=== PATIENT | male | born 1995 | race Caucasian/White ===

== ENCOUNTER 2020-07-22 16:52 | Emergency (ER) | payer OTHER ==
--- NOTE | 2020-07-22 17:40 | ED Physician Documentation ---
History of Present Illness - Stated complaint Stated Complaint: RT SHOULDER PX - Chief complaint Chief Complaint: Ext Problem - History obtained from History obtained from: Patient - History of Present Illness Timing: Today Pain level max: 8 Pain level now: 8 - Additonal information Additional information: Patient is a 24-year-old male with right shoulder pain. He states is been ongoing for at least the last year. He states he has been doing physical therapy for the past year and working with [facility]. He states that he is tired of his shoulder hurting and came in here to "get it fixed" today. He states he has not had an MRI or seen orthopedics. Worse with movement, better with rest. Worse with movement and better with rest. Review of Systems Constitutional: denies: Fever, Chills Cardiac: denies: Chest pain / pressure Respiratory: denies: Cough GI: denies: Vomiting Skin: denies: Rash Musculoskeletal: denies: Neck pain, Back pain Neurologic: denies: Headache PD PAST MEDICAL HISTORY - Past Medical History Past Medical History: No - Past Surgical History Past Surgical History: No - Present Medications Home Medications: Ambulatory Orders Medication Instructions Recorded Confirmed Ibuprofen [Motrin] 800 mg PO Q8H PRN #30 tablet 07/22/20 - Allergies Allergies/Adverse Reactions: Allergies Allergy/AdvReac Type Severity Reaction Status Date / Time No Known Drug Allergies Allergy Verified 07/22/20 16:56 - Social History Does the pt smoke?: Yes Smoking Status: Current every day smoker Does the pt drink ETOH?: Yes Does the pt have substance abuse?: No - Immunizations Immunizations are current?: Yes - POLST Patient has POLST: No PD ED PE NORMAL - Vitals Vital signs reviewed: Yes - General General: Alert and oriented X 3, No acute distress - HEENT HEENT: Moist mucous membranes - Neck Neck: Supple, no meningeal sign - Cardiac Cardiac: RRR - Respiratory Respiratory: No respiratory distress, Clear bilaterally - Derm Derm: Warm and dry - Extremities Extremities: Other (Pain with external rotation of the right shoulder. Neurovascularly intact. Also pain with abduction of the glenohumeral joint. No significant bony tenderness. 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 No relief with physical therapy. No acute findings on x-ray. Clinically appears to have a rotator cuff injury. Would recommend outpatient MRI with his doctor and referral to orthopedics. Patient counseled regarding signs and symptoms for which I believe and urgent re-evaluation would be necessary. Patient with good understanding of and agreement to plan and is comfortable going home at this time This document was made in part using voice recognition software. While efforts are made to proofread this document, sound alike and grammatical errors may occur. IMPRESSION: No acute fracture. No osseous lesion. If symptoms and/or clinical suspicion for pathology continue, further assessment with repeat plain films, or advanced imaging (e.g., CT, MRI, or bone scan) is recommended for further assessment. Departure - Departure Disposition: 01 Home, Self Care Clinical Impression: Rotator cuff disorder Qualifiers: Laterality: right Qualified Code(s): M67.911 - Unspecified disorder of synovium and tendon, right shoulder Condition: Good Instructions: ED Torn Rotator Cuff Follow-Up: [facility] [place] [Provider Group] - Within 1 week [facility] [Provider Group] Prescriptions: Ibuprofen [Motrin] 800 mg PO Q8H PRN #30 tablet PRN Reason: PAIN &/OR FEVER Comments: Follow-up with your doctor for further care. You should have an MRI of your shoulder as this has not improved by physical therapy for a year. You likely have a rotator cuff injury that may require surgery at this point. Your doctor will likely need to refer you to orthopedics after the MRI. You likely have a rotator cuff tear given that it does not improved in the last year. Discharge Date/Time: 07/22/20 18:31
--- NOTE | 2020-07-22 18:09 | XRAY Report ---
PROCEDURE: Shoulder 3 View RT INDICATIONS: R shoulder pain, no known injury TECHNIQUE: 3 views of the shoulder were acquired. COMPARISON: None. FINDINGS: Bones: No fractures or dislocations. No suspicious bony lesions. Visualized ribs appear intact. Soft tissues: No suspicious soft tissue calcifications. IMPRESSION: No acute fracture. No osseous lesion. If symptoms and/or clinical suspicion for patholog y continue, further assessment with repeat plain films, or advanced imaging (e.g., CT, MRI, or bone s can) is recommended for further assessment. Reviewed by: Naty Valladares MD on 07/22/2020 6:08 PM PDT Approved by: Naty Valladares MD on 07/22/2020 6:08 PM PDT Station ID: [id number]
[2020-07-22 18:31] VITALS: BP 95/60
== END 2020-07-22 18:31 | disposition home or self-care (01) ==
LOC: ED 16:52
DX: S46.001A Unspecified injury of muscle(s) and tendon(s) of the rotator cuff of right shoulder, initial encounter (principal); X58.XXXA Exposure to other specified factors, initial encounter; F17.200 Nicotine dependence, unspecified, uncomplicated
CPT/HCPCS: 99283; 99284

== ENCOUNTER 2021-05-30 08:00 | Outpatient (CLI) | payer OTHER | END 2021-05-30 23:59 | disposition home or self-care (01) | LOC: LAB.N 08:00 | PROVIDERS: ATTEND Physician Assistant | DX: R25.1 Tremor, unspecified (principal); R51.9 Headache, unspecified; Z20.822 Contact with and (suspected) exposure to COVID-19 ==

== ENCOUNTER 2021-06-04 16:58 | Outpatient (CLI) | payer OTHER ==
--- NOTE | 2021-06-06 18:16 | XRAY Report ---
PROCEDURE: Finger(s) RT INDICATIONS: CONTUSION OF R LITTLE FINGER TECHNIQUE: AP hand, 3 views of the right fifth finger(s) acquired. COMPARISON: None FINDINGS: Bones: No fractures or dislocations. There is mild soft tissue swelling centered at the proximal in terphalangeal joint of the fifth finger. No suspicious bony lesions. Soft tissues: No suspicious soft tissue calcifications. IMPRESSION: Soft tissue swelling of the left fifth finger centered predominantly over the proximal interphalangea l joint. Otherwise, no acute fracture or dislocation. If there is persistent clinical concern for a radiographically occult fracture, recommend immobilizat ion and repeat imaging in 10 to 14 days. Additionally, if there is high clinical suspicion for soft t issue injury, further evaluation with MRI can be considered. Reviewed by: Jaya Chew MD on 06/06/2021 6:14 PM PST Approved by: Jaya Chew MD on 06/06/2021 6:14 PM PST Station ID: [id number]
== END 2021-06-04 23:59 | disposition home or self-care (01) ==
LOC: DI.N 16:58
PROVIDERS: ATTEND Physician Assistant
DX: S60.051A Contusion of right little finger without damage to nail, initial encounter (principal)

== ENCOUNTER 2021-06-17 14:11 | Outpatient (CLI) | payer OTHER ==
--- NOTE | 2021-06-17 20:59 | SLEEP CARE CONSULTATION ---
Information from patient questionnaire entered by Leny Lott MA. I have reviewed and concur with the information entered by Leny Lott MA. This document represents the service I personally performed and the decisions made by me, Valentina Francis MD, [facility]. History of Present Illness Service Date and Time: 06/17/2021 1411 Reason for Visit: New patient (ONSET 05/2005, NO PRIORS,) Chief Complaint: reports: Insomnia, Unrefreshed sleep, Fatigue, Frequent awakenings at night Date of Onset: SINCE HE WAS 13 Usual bedtime: 2200 Time it takes to fall asleep: 1 - 3 HOURS Snores at night: No Observed to quit breathing while asleep: Yes Sleeps alone due to snoring: No Usually gets out of bed at: 0700 Feels refreshed in the morning: No Morning headache: No Sleepy or fatigued during the day: Yes Ever fallen asleep while driving: No Takes day naps: No Dreams during day naps: No Prior sleep studies: No Additional HPI information: I had the pleasure of seeing Mr. Anderson today regarding the possibility of him having a sleep disorder. As you know, he is a 25 year old gentleman who complains of frequent awakenings, unrefreshed sleep, persistent fatigue, and insomnia. The patient tells me that he normally goes to bed around 10 pm, and it takes him approximately 1 3 hours to fall asleep. He takes trazodone 50 mg prescribed to him by a psychiatrist. He has not been told that he snores loudly or irregularly at night. He has never been observed to stop breathing in his sleep. However, he sleeps alone. He can recall waking up on the average of 1 - 8 times during the night, occasionally with panic attacks. Most of the time he wakes up because of unknown reasons. He has never awakened because of his own snoring, choking, or having to gasp for air. There is a lot of tossing and turning in his sleep. No somniloquy (sleep talking) or somnambulism (sleep walking). Generally, there is no recollection of dreams. In the morning he usually gets up out of the bed around 7 a.m. not feeling refreshed nor rested. On weekends he gets up at 8:30 am. He usually does not have a morning headache. During the day he complains of feeling sleepy and fatigued. His score on [place] Sleepiness Scale is 8 out of 24. He never has fallen asleep while driving nor has had any accident due to sleepiness. He usually does not take naps during the day. Upon falling asleep during the day he to denies having vivid dreams. He has never had sleep paralysis, experienced cataplexy but reports symptoms of restless leg syndrome. He reports having impaired concentration during the day. - Parasomnia Symptoms Ever been unable to move upon waking from sleep: No Walks in sleep: No Talks in sleep: No Ever acted out dreams in sleep: No Ever felt weak in the knees when startled or emotional: No Bothered by creepy, crawly, restless sensations in legs: Yes Problems with memory or concentration: Yes Subjective Initial [place] Sleepiness Scale score: 8 (2021) Past Medical History Past Medical History: reports: Anxiety, Depression Social History The patient's occupation is a [employer]. Patient is Single and lives in . Have you smoked in the past 12 months: Yes Cigarettes per day (20/pack): 10 Years of smokin Smoking Pack Years: 6.0 Alcohol use: No Caffeine use: Yes Caffeine amount and frequency: 1 - 3 X DAILY Allergies and Home Medications Drug allergies reviewed: Yes (NKDA) Home medication list reviewed: Yes (amitriptylene, fluoxetine) Allergy and home medication list: Allergies No Known Drug Allergies Allergy (Verified 07/22/20 16:56) Review of Systems Cardiovascular: denies: high blood pressure, palpitations, chest pain, irregular heart rate or pulse, leg or foot swelling, have to sleep sitting up, other Respiratory: denies: shortness of breath, wheeze, sputum production, chronic cough, other Gastrointestinal: denies: heartburn, difficulty swallowing, nausea, vomitting, diarrhea, abdominal pain, other Urinary: denies: incontinence, frequency, urgency, impotence, other Neurological: denies: headaches, seizure, head trauma, disorientation, speech dysfunction, gait or balance problems, fainting or unconsciousness, other Psychiatric: reports: anxiety, depression Ear/Nose/Throat: denies: nasal congestion, sinus problems, nose bleeds, dry mouth/throat, hoarseness, injury to nose, tonsillectomy, wisdom teeth removed, other Endocrine: denies: thyroid disease, history of goiter, sluggishness, too hot or cold, excessive thirst, increased appetite, increased urination, unexplained weakness, other Musculoskeletal: denies: joint pain, neck pain, back pain, joint swelling, muscle pain or cramping, mobility problems, other Immunologic: denies: sneezing, rash, itching, allergies to food or environment, other Physical Exam Vital signs obtained and entered by: James LOTT CMA [facility] Blood Pressure: 121/79 (LEFT, ) Cuff size: wrist Heart Rate: 63 O2 Saturation: 98 Height: 5 ft 11 in Weight: 165 lb Body Mass Index: 23.0 BMI Classification: Healthy weight Mood/affect: To minimize the risk of COVID-19 exposure, detailed exam was not performed. Impression and Plan IMPRESSION: 1. Delayed sleep phase syndrome, as suggested by his wanting to get up at 8:30 am on his off days. This puts his physiologic bedtime at 12:30 am, assuming the normal sleep requirement of 8 hours a night. This explains why it takes him 1 3 hours to fall asleep when attempting to go to bed at 10 pm. It also explains why he has difficulty getting up at 6 am with his alarm clocks. The solution is to reset the 8:30 am get up time to 6 am. This can be done by not waking up any later on his off days. His underlying depression probably plays a role as a depressed individual will want to spend excessive time in bed. An in-laboratory polysomnography will be performed to rule out sleep-disordered breathing. Plan: 1. Schedule polysomnography and return in 1 to 2 weeks after the study to discuss result and initiate therapy. 2. Set the alarm clock at the same time on weekends. 3. Keep sleep diary 4. Continue with insomnia support group. 5. Maintain good sleep hygiene by following the [facility] websites recommendations. 6. A letter generated to his superior to allow late start for the next few weeks. Follow up with Sleep Care in: 1-2 months Visit Type: In Office Time Spent with Patient (minutes): 20 Provider Statement: I spent 100% of the Face to Face Visit with the patient with greater than 50% spent counseling the patient and coordination of care.
[2021-06-17 21:00] VITALS: BP 121/79
== END 2021-06-17 14:12 | disposition home or self-care (01) ==
LOC: SC 14:11
PROVIDERS: ATTEND Internal Medicine Pulmonary Disease
DX: G47.21 Circadian rhythm sleep disorder, delayed sleep phase type (principal); F32.A Depression, unspecified; G47.8 Other sleep disorders; R53.83 Other fatigue
CPT/HCPCS: 99203; 99212

== ENCOUNTER 2021-07-15 10:42 | Emergency (ER) | payer OTHER ==
[2021-07-15] MEDS ORDERED: diazePAM INJ 5 MG/ML SYRINGE IM STA (10:50)
--- NOTE | 2021-07-15 11:20 | ED Physician Documentation ---
History of Present Illness - Stated complaint Stated Complaint: ANXIETY/PANIC ATTACK - Chief complaint Chief Complaint: General - History obtained from History obtained from: Patient, EMS - Additonal information Additional information: The patient is brought to the emergency department by EMS for chief complaint of panic attack. 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 He states he just began to feel panicked about it and could not stop shaking all morning. He states then the symptoms got worse with abdominal cramping and hyperventilation. Patient states he could not stop running his hands or his hair and when he entered the building, he just collapsed. He states that he is gotten significantly better over the course the ambulance ride but is still feeling very shaken up. The patient denies any chest pain. No vomiting. No shortness of breath at this time. The patient has a history of anxiety, depression, and insomnia. He is currently on Prozac and trazodone for these issues, though he does state that he only slept about a broken 3 hours last night. Review of Systems Ten Systems: 10 systems reviewed and negative Constitutional: reports: Reviewed and negative Eyes: reports: Reviewed and negative Ears: reports: Reviewed and negative Nose: reports: Reviewed and negative Throat: reports: Reviewed and negative Cardiac: reports: Reviewed and negative Respiratory: reports: Reviewed and negative GI: reports: Reviewed and negative : reports: Reviewed and negative Skin: reports: Reviewed and negative Musculoskeletal: reports: Reviewed and negative Neurologic: reports: Reviewed and negative Psychiatric: reports: Anxiety, Other (Panic attack) Endocrine: reports: Reviewed and negative Immunocompromised: reports: Reviewed and negative PD PAST MEDICAL HISTORY - Past Medical History Past Medical History: Yes Cardiovascular: None Respiratory: None Neuro: None Endocrine/Autoimmune: None GI: None : None HEENT: None Psych: Depression, Anxiety Musculoskeletal: None Derm: None - Past Surgical History Past Surgical History: No - Present Medications Home Medications: Ambulatory Orders Medication Instructions Recorded Confirmed Fluoxetine HCl [Prozac] 60 mg PO DAILY 07/15/21 07/15/21 Trazodone HCl 100 mg PO HS 07/15/21 07/15/21 - Allergies Allergies/Adverse Reactions: Allergies Allergy/AdvReac Type Severity Reaction Status Date / Time No Known Drug Allergies Allergy Verified 07/15/21 10:51 - Social History Does the pt smoke?: Yes Smoking Status: Current every day smoker Does the pt drink ETOH?: Yes Does the pt have substance abuse?: No - Immunizations Immunizations are current?: Yes - POLST Patient has POLST: No PD ED PE NORMAL - Vitals Vital signs reviewed: Yes - General General: Alert and oriented X 3, No acute distress, Well developed/nourished, Other (The patient appears slightly anxious but otherwise no apparent distress.) - HEENT HEENT: Atraumatic, PERRL, EOMI, Moist mucous membranes - Neck Neck: Supple, no meningeal sign - Cardiac Cardiac: RRR, No murmur, Strong equal pulses - Respiratory Respiratory: No respiratory distress, Clear bilaterally - Abdomen Abdomen: Soft, Non tender, Non distended - Derm Derm: Normal color, Warm and dry, No rash - Extremities Extremities: No deformity, No edema, No calf tenderness / cord - Neuro Neuro: Alert and oriented X 3, 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 He actually looked quite good and I felt he was stable for discharge home. He is young and otherwise healthy and had a specific trigger for his anxiety/panic attack. He is already on Prozac and trazodone and should remain on these medications. We discussed the usual indications for return. Departure - Departure Disposition: 01 Home, Self Care Clinical Impression: Panic attack as reaction to stress Condition: Stable Instructions: ED Panic Attack Comments: You have been treated with sedating medications in the emergency department today. Please do not drive for the next 8 hours.
[2021-07-15 11:31] VITALS: BP 103/59
== END 2021-07-15 11:45 | disposition home or self-care (01) ==
LOC: EDUNIT# → ED 10:42
DX: F43.0 Acute stress reaction (principal); F17.200 Nicotine dependence, unspecified, uncomplicated
CPT/HCPCS: 96372; 99283

== ENCOUNTER 2021-08-08 21:29 | Emergency (ER) | payer OTHER ==
[2021-08-08 21:38] VITALS: BP 110/71
--- NOTE | 2021-08-08 22:02 | ED Physician Documentation ---
PD HPI LOWER EXT INJURY - Stated complaint Stated Complaint: RT FOOT INJ - Chief complaint Chief Complaint: Trauma Ext - History obtained from History obtained from: Patient - Additional information Additional information: Patient with history for depression presenting for evaluation of Right foot pain after injury. Around7 PM, patient was practicing before his volleyball game and when he jumped up and landed down. He heard a crunch. However he was able to play 1 hour of volleyball without issue. He reports after his adrenaline wore off he had pain in the right foot which has worsened. It is sharp and throbbing. It does not radiate elsewhere. Is worse with movement and better at rest.He does have a history of a previous fracture to the fifth metatarsal which did not require surgery in the past.He denies injury elsewhere. Review of Systems Constitutional: denies: Fever Nose: denies: Congestion Cardiac: denies: Chest pain / pressure, Palpitations Respiratory: denies: Dyspnea, Cough GI: denies: Abdominal Pain, Vomiting : denies: Dysuria Skin: denies: Rash Musculoskeletal: reports: Back pain, Extremity pain, Pain with weight bearing Neurologic: denies: Syncope, Head injury PD PAST MEDICAL HISTORY - Past Medical History Cardiovascular: None Respiratory: None Neuro: None Endocrine/Autoimmune: None GI: None : None HEENT: None Psych: Depression, Anxiety, Other Musculoskeletal: None Derm: None Other Past Medical History: currently being evaluated for sleep disorder. - Past Surgical History Past Surgical History: No HEENT: Other - Present Medications Home Medications: Ambulatory Orders Medication Instructions Recorded Confirmed Fluoxetine HCl [Prozac] 60 mg PO DAILY 07/15/21 08/08/21 Trazodone HCl 100 mg PO HS PRN 07/15/21 08/08/21 Ibuprofen [Motrin] 1 tablet PO Q8H PRN #20 tablet 08/08/21 - Allergies Allergies/Adverse Reactions: Allergies Allergy/AdvReac Type Severity Reaction Status Date / Time No Known Drug Allergies Allergy Verified 08/08/21 21:39 - Social History Does the pt smoke?: Yes Smoking Status: Current every day smoker Does the pt drink ETOH?: Yes Does the pt have substance abuse?: No - Immunizations Immunizations are current?: Yes - POLST Patient has POLST: No PD ED PE NORMAL - General General: Alert and oriented X 3, No acute distress, Well developed/nourished - HEENT HEENT: Atraumatic, Moist mucous membranes - Neck Neck: Supple, no meningeal sign - Cardiac Cardiac: RRR - Respiratory Respiratory: No respiratory distress, Clear bilaterally - Derm Derm: Warm and dry - Extremities Extremities: No edema, No calf tenderness / cord, Other (Tenderness to right lateral foot with no visible deformities, Compartments of foot and lower extremity are soft, no tenderness to bilateral malleoli, no tenderness more proximally in the lower extremity, strong distal pulses, Motor and sensation intact) - Neuro Neuro: No motor deficit, No sensory deficit Eye Opening: Spontaneous Motor: Obeys Commands Verbal: Oriented GCS Score: 15 - Psych Psych: Normal mood PD ED PE EXPANDED - Extremities Feet visual: 1 - tenderness Results - Vitals Vitals: Vital Signs - 24 hr 08/08/21 21:30 Temperature 36.4 C L Heart Rate 82 Respiratory 16 Rate Blood Pressure 110/71 O2 Saturation 97 Oxygen O2 Source Room air PD MEDICAL DECISION MAKING - ED course ED course: Patient with pain to right foot after injury this evening. He was able to continue with activity after the initial injury prior to onset of pain. Neurovascularly intact. No tenderness to either malleoli or signs of more proximal injury. X-ray of the foot is negative for fracture dislocation. A removable splint was applied and crutches given with instructions for supportive care. Patient is aware of return precautions. No injuries noted elsewhere. Departure - Departure Disposition: 01 Home, Self Care Clinical Impression: Right foot injury Qualifiers: Encounter type: initial encounter Qualified Code(s): S99.921A - Unspecified injury of right foot, initial encounter Condition: Stable Instructions: ED Sprain Foot Prescriptions: Ibuprofen [Motrin] 1 tablet PO Q8H PRN #20 tablet PRN Reason: PAIN &/OR FEVER Comments: Your evaluated for an injury to your right foot. An x-ray did not show a broken bone or out of place bone.You could still have an injury to muscles and ligaments in the foot. We applied an Leonardo wrap and a special shoe to help you with your pain as well as crutches. You should useThese items to help you with pain and discomfort. Rest the foot is much as you can, use ice, elevate the foot to help with swelling, use Motrin or Tylenol for pain. A prescription for Motrin was sent to the [facility] [place]Please also follow-up with your primary care doctor. Forms: Activity restrictions Discharge Date/Time: 08/08/21 23:10
--- NOTE | 2021-08-08 22:38 | XRAY Report ---
PROCEDURE: Foot 3 View RT INDICATIONS: sport injury, R foot pain/swelling TECHNIQUE: 3 views of the foot were acquired. COMPARISON: None. FINDINGS: Bones: No acute fractures or dislocations. There is fusion of the fifth distal interphalangeal joint . No suspicious bony lesions. Soft tissues: No tibiotalar joint effusion. Achilles tendon appears intact. IMPRESSION: 1. No acute fracture or dislocation. Reviewed by: Ryder Cardoza MD on 08/08/2021 10:37 PM PDT Approved by: Ryder Cardoza MD on 08/08/2021 10:37 PM PDT Station ID: [id number]
[2021-08-08] MEDS ORDERED: IBUPROFEN 800 MG TABLET PO STA (22:41)
== END 2021-08-08 23:10 | disposition home or self-care (01) ==
LOC: ED 21:29
DX: S99.921A Unspecified injury of right foot, initial encounter (principal); X50.1XXA Overexertion from prolonged static or awkward postures, initial encounter; Y93.68 Activity, volleyball (beach) (court); F17.200 Nicotine dependence, unspecified, uncomplicated
CPT/HCPCS: 73630; 99282; 99283; A9270

== ENCOUNTER 2021-08-19 13:55 | Outpatient (CLI) | payer OTHER ==
[2021-08-19 22:45] VITALS: BP 105/75
--- NOTE | 2021-08-19 22:45 | SLEEP CARE CONSULTATION ---
Information from patient questionnaire entered by Leny Lott MA. I have reviewed and concur with the information entered by Leny Ltot MA. This document represents the service I personally performed and the decisions made by me, Valentina Francis MD, [facility]. History of Present Illness Service Date and Time: 08/19/2021 1355 Reason for follow up: other (2 MONTH F/U, INSOMNIA, ) Prior sleep studies: No HPI additional information: Mr. Anderson is felt to have circadian rhythm disorder that requires adjustment. He continues to report sleep onset insomnia and excessive daytime sleepiness. He has tried to get up earlier on weekends. He now can get up at 7 am. He reports sleeping better at night but his girlfriend says he twitches in his sleep. His psychiatrist is working on getting him an administrative leave in December. In addition to trazodone and Prozac, he now takes propranolol and Motrin. Sleep Study - Results Prior sleep studies: No Subjective Initial Orwell Sleepiness Scale score: 8 (2021) Current Orwell Sleepiness Scale score: 15 (2021) Allergies and Home Medications Known drug allergies: No Drug allergies reviewed: Yes Home medication list reviewed: Yes Allergy and home medication list: Allergies No Known Drug Allergies Allergy (Verified 08/08/21 21:39) Review of Systems Review of systems same as previous: Yes (SPRAIN ANKLE) Physical Exam Vital signs obtained and entered by: WILBERTO LE Blood Pressure: 105/75 (RIGHT, PULSE 86, RESP 18, ) Cuff size: wrist Heart Rate: 91 O2 Saturation: 96 (PAPER MASK) Height: 5 ft 11 in Weight: 163 lb (95) Body Mass Index: 22.7 BMI Classification: Healthy weight Impression and Plan IMPRESSION: 1. Delayed sleep phase syndrome, improving with the patient getting up earlier on the weekend. He will have his in-laboratory polysomnography this Thursday. Plan: 1. Return for follow up after the sleep study. 2. Work on getting up by 6 am on weekends. 3. Keep sleep diary (a new set given to him because he lost the old one). 4. Continue with insomnia support group. Follow up with Sleep Care in: 1-2 months Visit Type: In Office Time Spent with Patient (minutes): 15 Provider Statement: I spent 100% of the Face to Face Visit with the patient with greater than 50% spent counseling the patient and coordination of care.
== END 2021-08-19 13:56 | disposition home or self-care (01) ==
LOC: SC 13:55
PROVIDERS: ATTEND Internal Medicine Pulmonary Disease
DX: G47.21 Circadian rhythm sleep disorder, delayed sleep phase type (principal)
CPT/HCPCS: 99212

== ENCOUNTER 2021-08-25 19:19 | Outpatient (CLI) | payer OTHER | END 2021-08-25 19:20 | disposition home or self-care (01) | LOC: SC 19:19 | PROVIDERS: ATTEND Internal Medicine Pulmonary Disease | DX: G47.61 Periodic limb movement disorder (principal); I49.3 Ventricular premature depolarization | CPT/HCPCS: 95810 ==

== ENCOUNTER 2021-09-09 13:15 | Outpatient (CLI) | payer OTHER ==
[2021-09-09 16:38] VITALS: BP 118/68
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
== END 2021-09-09 13:16 | disposition home or self-care (01) ==
LOC: SC 13:15
PROVIDERS: ATTEND Internal Medicine Pulmonary Disease
DX: G47.61 Periodic limb movement disorder (principal); I49.3 Ventricular premature depolarization; E66.01 Morbid (severe) obesity due to excess calories; Z68.43 Body mass index [BMI] 50.0-59.9, adult
CPT/HCPCS: 99212